=== PATIENT | male | born 1980 | race Caucasian/White ===

== ENCOUNTER 2016-10-19 11:51 | Emergency (ER) | payer MEDICAID ==
[~2016-10-19] VITALS: Ht 175.3 cm; Wt 74.8 kg
[2016-10-19 12:01] VITALS: BP_SYST 125
[2016-10-19 13:33] VITALS: BP_SYST 119
== END 2016-10-19 13:33 | disposition home or self-care (01) ==
LOC: SED 11:51
DX: B02.9 Zoster without complications (principal)
CPT/HCPCS: 99283

== ENCOUNTER 2017-01-01 15:56 | Emergency (ER) | payer MEDICAID ==
[~2017-01-01] VITALS: Ht 175.3 cm; Wt 69.4 kg
[2017-01-01 15:59] VITALS: BP 152/91; PULSE 94; RESP 20; TEMP 97.8; O2SAT 97
--- NOTE | 2017-01-01 16:03 | NUR ---
Pt placed to ER bed 03, report given to DURAN Zhao.
--- NOTE | 2017-01-01 16:05 | NUR ---
Stable condition, pt states had spontaneous nose bleed to left nare prior to arrival today. Near syncopal episode per pt,denies fall/injury. States drank water before arrival & dizziness resolved. Denies feeling faint/dizzy at this time. No bleeding noted to nares. No other complaints/injuries per pt or noted.
--- NOTE | 2017-01-01 16:10 | NUR ---
ER Dr. Miller at bedside examining patient.
--- NOTE | 2017-01-01 16:15 | NUR ---
Pt having nose bleed to left nare,pressure immediately applied w/ brisa, Dr. Miller at bedside. Pt refusing rhino rocket recommended by Dr. Miller. Nose clamp applied, no bleeding at this time, monitoring. Patient denies dizziness/feeling faint. Addendum: 01/01/17 at 1713 by LETI Nose clamp per order
--- NOTE | 2017-01-01 16:20 | NUR ---
Patient signed refusal of medical treatment of rhino rocket-document placed in chart, copy given to pt per request.
--- NOTE | 2017-01-01 16:45 | NUR ---
Nose clamped removed to assess per MD order, no bleeding from nares at this time. MD notified, okay to leave clamp off.
[2017-01-01 17:05] VITALS: BP 142/86; PULSE 88; RESP 18; TEMP 98.2; O2SAT 98
--- NOTE | 2017-01-01 17:05 | NUR ---
Patient given written and verbal discharge instructions and verbalizes understanding. ER MD discussed with patient the results and treatment provided. Patient in stable condition. ID arm band removed. Rx of Augmentin and Afrin given. Patient educated on pain management and to follow up with PMD w/ 2 days. Per MD verbal order-patient to have nose clamp on for 20 mins following discharge-pt refused to have nose clamp placed at this time, no bleeding to nares- MD aware. Opportunity for questions provided and answered.
== END 2017-01-01 17:05 | disposition home or self-care (01) ==
LOC: SED 15:56
DX: R04.0 Epistaxis (principal)
CPT/HCPCS: 99283; J7030

== ENCOUNTER 2017-03-14 10:30 | Emergency (ER) | payer MEDICAID ==
[~2017-03-14] VITALS: Ht 175.3 cm; Wt 74.8 kg
[2017-03-14 10:33] VITALS: BP_SYST 137
[2017-03-14 12:31] VITALS: BP_SYST 127
== END 2017-03-14 12:28 | disposition home or self-care (01) ==
LOC: SED 10:30
DX: S43.035A Inferior dislocation of left humerus, initial encounter (principal); X58.XXXA Exposure to other specified factors, initial encounter; Y93.01 Activity, walking, marching and hiking; Y92.89 Other specified places as the place of occurrence of the external cause; Y99.8 Other external cause status
CPT/HCPCS: 73030; 99284

== ENCOUNTER 2017-04-26 19:28 | Emergency (ER) | payer SELFPAY ==
[~2017-04-26] VITALS: Ht 175.3 cm; Wt 70.3 kg
[2017-04-26 19:30] VITALS: BP 141/98; PULSE 125; RESP 20; TEMP 97.9; O2SAT 100
[2017-04-26] MEDS ORDERED: ACETAMINOPHEN 500 MG TABLET PO ONE (19:45)
[2017-04-26] MEDS ORDERED: DIPH-TET-PERTUS Vaccine 0.5 ML VIAL (ADACEL) I.M. ONE (20:00)
[2017-04-26] MEDS ORDERED: LIDOCAINE/EPI 1% 1:100000 20 ML VIAL INJ ONE (21:45)
[2017-04-26 22:40] VITALS: BP 130/80; PULSE 90; RESP 20; TEMP 98; O2SAT 100
== END 2017-04-26 22:40 | disposition home or self-care (01) ==
LOC: SED 19:28
DX: S02.2XXA Fracture of nasal bones, initial encounter for closed fracture (principal); S01.511A Laceration without foreign body of lip, initial encounter; F17.200 Nicotine dependence, unspecified, uncomplicated; Y04.0XXA Assault by unarmed brawl or fight, initial encounter; Y93.89 Activity, other specified; Y92.89 Other specified places as the place of occurrence of the external cause; Y99.8 Other external cause status
CPT/HCPCS: 70450-TC; 70486-TC; 81025; 90715; 99284

== ENCOUNTER 2017-08-31 09:55 | Emergency (ER) | payer MEDICAID ==
[~2017-08-31] VITALS: Ht 175.3 cm; Wt 70.3 kg
[2017-08-31 10:08] VITALS: BP_SYST 105
[2017-08-31] MEDS ORDERED: ACETAMINOPHEN 500 MG TABLET PO ONE (11:00)
[2017-08-31 11:28] VITALS: BP_SYST 109
== END 2017-08-31 11:28 | disposition home or self-care (01) ==
LOC: SED 09:55
DX: J10.1 Influenza due to other identified influenza virus with other respiratory manifestations (principal)
CPT/HCPCS: 36415; 86710; 99284

== ENCOUNTER 2019-06-10 16:08 | Emergency (ER) | payer MEDICAID ==
[~2019-06-10] VITALS: Ht 175.3 cm; Wt 75.7 kg
[2019-06-10 16:29] VITALS: BP_SYST 133
[2019-06-10 16:38] VITALS: BP_SYST 128
[2019-06-10] MEDS ORDERED: EPINEPHrine JECT 0.1 MG/ML SYR IVP ONE (16:45)
[2019-06-10] MEDS ORDERED: EPINEPHrine 1 MG/ML AMP IM ONE (17:00)
[2019-06-10] MEDS ORDERED: EPINEPHrine 1 MG/ML AMP ONE (17:05)
== END 2019-06-10 16:38 | disposition home or self-care (01) ==
LOC: SED 16:08
DX: T63.441A Toxic effect of venom of bees, accidental (unintentional), initial encounter (principal); Y92.89 Other specified places as the place of occurrence of the external cause
CPT/HCPCS: 96372; 99283; J0171 ×2